=== PATIENT | female | born 1975 | race Caucasian/White ===

== ENCOUNTER 2022-12-14 13:15 | Outpatient (CLI) | payer OTHER, SELFPAY ==
--- NOTE | 2022-12-14 13:20 | CRLHL7_ITS ---
For Patients: As a result of the Century Cures Act, medical imaging exams and procedure reports are released immediately into your electronic medical record. You may view this report before your referring provider. If you have questions, please contact your health care provider. BILATERAL SCREENING MAMMOGRAM WITH COMPUTER-AIDED DETECTION AND TOMOSYNTHESIS TECHNIQUE: CC and MLO views were obtained. These mammographic images have been obtained using full-field digital technique. These mammographic images were interpreted with the benefit of computer-aided detection. Breast Tomosynthesis was used in this interpretation. COMPARISON FILM: 05/08/20, 05/27/17 FINDINGS: The breasts are heterogeneously dense, which may obscure small masses. IMPRESSION: There is no radiographic evidence for malignancy. ASSESSMENT: BI-RADS Category 1: Negative RECOMMENDATION: Routine screening mammogram in 1 year. A lay language report of this examination will be provided to the patient. Luke Cruz M.D. Diagnostic/Nuclear Medicine Radiologist [email or web address] Transcribed: 8:42 a.m. PT/Dictated by: Luke Cruz MD @ 12/15/2022 8:27:00 AM (Electronically Signed)
== END 2022-12-14 13:16 | disposition home or self-care (01) ==
LOC: MAMMO 13:16
PROVIDERS: PCP Physician Assistant Medical; Visit Provider Physician Assistant Medical
DX: Z12.31 Encounter for screening mammogram for malignant neoplasm of breast (principal); R92.2 Inconclusive mammogram
CPT/HCPCS: 77063; 77067

== ENCOUNTER 2023-06-09 08:00 | Outpatient (CLI) | payer OTHER, SELFPAY ==
--- NOTE | 2023-06-09 08:15 | CRLHL7_ITS ---
For Patients: As a result of the 21st Century Cures Act, medical imaging exams and procedure reports are released immediately into your electronic medical record. You may view this report before your referring provider. If you have questions, please contact your health care provider. HISTORY: Acute on chronic left shoulder pain. Decreased range of motion and decreased strength. TECHNIQUE: Noncontrast MRI of the left shoulder. COMPARISON: Radiographs 05/24/2023. FINDINGS: Rotator cuff: Mild distal supraspinatus and infraspinatus tendinosis. No tear of either distal tendon. Supraspinatus and infraspinatus muscle mass are maintained. Distal teres minor tendon is intact. Teres minor muscle mass is maintained. Distal subscapularis tendon is intact. Subscapularis muscle mass is maintained. - AC joint and coracoacromial arch: The AC joint is intact. No AC joint widening or malalignment. Coracoclavicular ligament intact. Type 2 acromial morphology. No os acromiale. No significant subacromial spurring. The acromiohumeral interval measures approximately 6 mm. No subacromial-subdeltoid bursal fluid collection. The subcoracoid interval measures 8 mm. - Biceps-labral complex: Long head of biceps tendon is intact. There is no subluxation or dislocation of tendon from bicipital groove. Superior labrum intact. Labrum below the equator is intact. - Glenohumeral joint: No effusion. The articular surfaces are smooth without focal articular cartilage defect. There is edema within the rotator interval as noted on axial PD fat-sat image #12 series 4. There is also mild edema involving the anterior band inferior GH ligament region on axial PD fat sat image #20 of series 4. In the setting of decreased range of motion, this may indicate subtle capsulitis. - Bones and soft tissues: No fracture or avascular necrosis. No abnormality within the suprascapular or spinoglenoid notches nor within the quadrilateral space. IMPRESSION: 1. Mild distal supraspinatus and infraspinatus tendinosis without tendon tear or muscle atrophy. 2. No labral tear. 3. Subtle edema within the rotator interval and associated with the anterior band inferior glenohumeral ligament (as noted on the axial PD fat-sat images). In the setting of decreased range of motion, this may indicate the presence of subtle capsulitis. Dictated by Andry Noel MD @ 06/10/2023 6:31:45 AM (Electronically Signed)
== END 2023-06-09 08:01 | disposition home or self-care (01) ==
LOC: MRI 08:02
PROVIDERS: PCP Physician Assistant Medical; Visit Provider Family Medicine
DX: M25.512 Pain in left shoulder (principal)
CPT/HCPCS: 73221

== ENCOUNTER 2023-08-11 07:30 | Outpatient (RCR) | payer OTHER, SELFPAY | END 2023-11-22 09:37 | disposition home or self-care (01) | PROVIDERS: PCP Physician Assistant Medical; Visit Provider Family Medicine | DX: M25.512 Pain in left shoulder (principal); Z51.89 Encounter for other specified aftercare | CPT/HCPCS: 97035; 97110; 97140; 97161 ==